=== PATIENT | male | born 1930 | race Caucasian/White ===

== ENCOUNTER 2018-01-29 16:11 | Inpatient (IN) | payer MEDICARE ==
[~2018-01-29] VITALS: Ht 177.8 cm; Wt 88.6 kg
[~2018-01-29 16:11] MED LIST: CALC-815 PO; FINA5TAB11 PO; FISH12002 PO; LISI10TA4 PO; METO50TA7 PO; MULT-38 PO; NITR0.4T48 SL; PRAV40TA3 PO; RANI150T8 PO; VITE1000C PO
[2018-01-29] MEDS ORDERED: normal saline 1000ML IV soln IVB ONE ×2 (16:40→17:55)
[2018-01-29 16:43] LABS: BASOPHILS % (AUTO) 0.3 % (0-1); EOSINOPHILS # (AUTO) 0.2 X10'3 (0-0.9); HEMATOCRIT 38.6 % (42.0-52.0); HEMOGLOBIN 13.1 g/dl (14.0-17.9); LYMPHOCYTES # (AUTO) 1.4 X10'3 (1.1-4.8); LYMPHOCYTES % (AUTO) 24.7 % (21-51); MEAN CORPUSCULAR HEMOGLOBIN 31.5 PG (27.0-31.0); MEAN CORPUSCULAR HGB CONC 33.9 % (33.0-36.5); MEAN CORPUSCULAR VOLUME 92.9 FL (78-98); MEAN PLATELET VOLUME 8.6 FL (7.4-10.4); MONOCYTES # (AUTO) 0.6 X10'3 (0-0.9); MONOCYTES % (AUTO) 10.6 % (2-12); NEUTROPHILS # (AUTO) 3.3 X10'3 (1.8-7.7); NEUTROPHILS % (AUTO) 60.4 % (42-75); PLATELET COUNT 165 X10'3 (140-440); RED BLOOD COUNT 4.16 X10'6 (4.70-6.10); WHITE BLOOD COUNT 5.5 X10'3 (4.5-11.0)
[2018-01-29 16:58] LABS: ALANINE AMINOTRANSFERASE 31 U/L (12-78); ALBUMIN 3.3 G/DL (3.4-5.0); ALBUMIN/GLOBULIN RATIO 1.1 (1.1-1.5); ALKALINE PHOSPHATASE 53 IU/L (46-116); ANION GAP 10 (8-16); ASPARTATE AMINO TRANSFERASE 18 U/L (10-37); BILIRUBIN,TOTAL 0.5 MG/DL (0.1-1.0); BLOOD UREA NITROGEN 33 MG/DL (7-18); BUN/CREATININE RATIO 17.6 (5.4-32.0); CALCIUM 8.3 MG/DL (8.5-10.1); CHLORIDE 106 MMOL/L (99-107); CREATININE 1.87 MG/DL (0.60-1.10); GLUCOSE 122 MG/DL (70-104); POTASSIUM 4.1 MMOL/L (3.5-5.1); SODIUM 140 MMOL/L (135-145); TOTAL CARBON DIOXIDE 23.6 MMOL/L (24-32); TOTAL PROTEIN 6.3 G/DL (6.4-8.2); eGFR 34 ML/MIN
[2018-01-29] MEDS ORDERED: nitroGLYCERIN 0.4mg SUBLingual tab SL PRN ×2 (17:55→20:20)
[2018-01-29 18:16] LABS: D-DIMER 2.08 MG/L FEU (0-0.50)
[2018-01-29] MEDS ORDERED: enoxaparin 100mg/ml syringe SUBCUT ONE (18:45)
[2018-01-29] MEDS ORDERED: DOXA4TAB5 PO (18:53)
[2018-01-29] MEDS ORDERED: CLOP75TA35 PO (18:53)
[2018-01-29] MEDS ORDERED: nitroGLYCERIN 0.4mg/hour patch TD ONE (19:00)
[2018-01-29] MEDS ORDERED: dextrose 5%-1/2 normal saline 1,000 ML IV SCH (20:11)
[2018-01-29] MEDS ORDERED: bisacodyl 10mg suppository rectal RC PRN (20:15)
[2018-01-29] MEDS ORDERED: acetaminophen 325mg tablet PO PRN ×2 (20:15)
[2018-01-29] MEDS ORDERED: HYDROmorphone 1 mg/ml syringe IV PRN ×2 (20:15)
[2018-01-29] MEDS ORDERED: diphenhydrAMINE 50 mg/ml inj IV PRN (20:15)
[2018-01-29] MEDS ORDERED: diphenhydrAMINE 25mg capsule PO PRN (20:15)
[2018-01-29] MEDS ORDERED: morphine 4 MG/ML inj SYRINge IV PRN ×2 (20:15)
[2018-01-29] MEDS ORDERED: ondansetron/PF 4mg/2ml inj IV PRN (20:15)
[2018-01-29] MEDS ORDERED: HYDROcodone/acetaminophen 10/325mg tab PO PRN (20:15)
[2018-01-29] MEDS ORDERED: acetaminophen 650mg rectal suppository RC PRN (20:15)
[2018-01-29] MEDS ORDERED: metoclopramide 5 mg/ml inj IV PRN (20:15)
[2018-01-29] MEDS ORDERED: CAFFEINE CITRATE 60 MG/3 ML injection vial IV PRN (20:20)
[2018-01-29] MEDS ORDERED: regadenoson 0.4mg/5ml syringe IV PRN (20:20)
[2018-01-29] MEDS ORDERED: metoprolol tartrate 1mg/ml inj IV PRN (20:20)
[2018-01-29] MEDS: pravastatin 40mg tablet PO SCH (20:43)
[2018-01-29 21:00] VITALS: BP 98/59
[2018-01-29] MEDS ORDERED: temazepam 15mg capsule PO PRN (21:00)
[2018-01-29] MEDS ORDERED: LISI-642 PO (22:12)
[2018-01-29] MEDS ORDERED: METO-539 PO (22:12)
[2018-01-29] MEDS: metoprolol succinate 25mg (24-HOUR) SR. Tablet PO SCH (22:30)
[2018-01-30] VITALS (20 sets, daily range): BP systolic 105–138; BP diastolic 49–65
[2018-01-30 05:23] LABS: BASOPHILS % (AUTO) 0.4 % (0-1); EOSINOPHILS # (AUTO) 0.3 X10'3 (0-0.9); EOSINOPHILS % (AUTO) 4.9 % (0-6); HEMATOCRIT 33.4 % (42.0-52.0); HEMOGLOBIN 11.2 g/dl (14.0-17.9); LYMPHOCYTES # (AUTO) 1.5 X10'3 (1.1-4.8); LYMPHOCYTES % (AUTO) 27.8 % (21-51); MEAN CORPUSCULAR HEMOGLOBIN 31.2 PG (27.0-31.0); MEAN CORPUSCULAR HGB CONC 33.5 % (33.0-36.5); MEAN CORPUSCULAR VOLUME 93.2 FL (78-98); MEAN PLATELET VOLUME 9.2 FL (7.4-10.4); MONOCYTES # (AUTO) 0.6 X10'3 (0-0.9); MONOCYTES % (AUTO) 11.6 % (2-12); NEUTROPHILS % (AUTO) 55.3 % (42-75); PLATELET COUNT 146 X10'3 (140-440); RED BLOOD COUNT 3.59 X10'6 (4.70-6.10); RED CELL DISTRIBUTION WIDTH 13.9 % (11.5-14.5); WHITE BLOOD COUNT 5.4 X10'3 (4.5-11.0)
[2018-01-30 06:32] LABS: ALANINE AMINOTRANSFERASE 21 U/L (12-78); ALBUMIN 2.7 G/DL (3.4-5.0); ALKALINE PHOSPHATASE 43 IU/L (46-116); ANION GAP 8 (8-16); ASPARTATE AMINO TRANSFERASE 17 U/L (10-37); BILIRUBIN,TOTAL 0.5 MG/DL (0.1-1.0); BLOOD UREA NITROGEN 27 MG/DL (7-18); BUN/CREATININE RATIO 18.4 (5.4-32.0); CALCIUM 8.4 MG/DL (8.5-10.1); CHLORIDE 110 MMOL/L (99-107); CREATININE 1.47 MG/DL (0.60-1.10); GLUCOSE 119 MG/DL (70-104); POTASSIUM 4.1 MMOL/L (3.5-5.1); SODIUM 143 MMOL/L (135-145); TOTAL CARBON DIOXIDE 24.9 MMOL/L (24-32); TOTAL PROTEIN 5.4 G/DL (6.4-8.2); eGFR 45 ML/MIN
[2018-01-30] MEDS: docusate sod 100mg capsule PO SCH ×2 (07:41→20:28)
[2018-01-30] MEDS: lisinopril 5mg tablet PO SCH (07:41)
[2018-01-30] MEDS: magnesium oxide 400mg tablet PO SCH (07:47)
[2018-01-30] MEDS: calcium carbonate 500mg tablet PO SCH (07:48)
[2018-01-30] MEDS: aspirin 81mg tab.chew PO SCH (07:48)
[2018-01-30] MEDS: finasteride 5mg tablet PO SCH (07:48)
[2018-01-30] MEDS: heparin, porcine 5000 units/ml vial SQ SCH ×2 (07:48→20:29)
[2018-01-30] MEDS: famotidine 20mg tablet PO SCH (07:48)
[2018-01-30] MEDS ORDERED: CALCIUM CARB PO SCH (08:00)
[2018-01-30] MEDS ORDERED: non-formulary drug (Ranitidine HCl 1 TAB) PO SCH (08:00)
[2018-01-30] MEDS ORDERED: MAGNESIUM CMB PO SCH (08:00)
[2018-01-30] MEDS ORDERED: metoprolol succinate 25mg (24-HOUR) SR. Tablet PO SCH (08:00)
[2018-01-30] MEDS ORDERED: lisinopril 10 MG tablet PO SCH (08:00)
[2018-01-30] MEDS ORDERED: non-formulary drug (Metoprolol Succinate* (Toprol Xl*) 1 TAB) PO SCH (08:00)
[2018-01-30] MEDS ORDERED: regadenoson 0.4mg/5ml syringe IV ONE (10:40)
[2018-01-30] MEDS ORDERED: CAFFEINE CITRATE 60 MG/3 ML injection vial IV ONE (10:40)
[2018-01-30] MEDS: HYDROcodone/acetaminophen 5mg/325mg tablet PO PRN (13:58)
[2018-01-30] MEDS: normal saline 1000ml 1,000 ML IV SCH (16:42)
[2018-01-30] MEDS: pravastatin 40mg tablet PO SCH (20:28)
[2018-01-30] MEDS: metoprolol succinate 25mg (24-HOUR) SR. Tablet PO SCH (20:28)
[2018-01-31 02:00] VITALS: BP 136/55
[2018-01-31] MEDS: normal saline 1000ml 1,000 ML IV SCH ×2 (03:01→12:35)
[2018-01-31 05:07] LABS: BASOPHILS % (AUTO) 0.3 % (0-1); EOSINOPHILS # (AUTO) 0.3 X10'3 (0-0.9); EOSINOPHILS % (AUTO) 4.9 % (0-6); HEMATOCRIT 33.6 % (42.0-52.0); HEMOGLOBIN 11.2 g/dl (14.0-17.9); LYMPHOCYTES # (AUTO) 1.4 X10'3 (1.1-4.8); LYMPHOCYTES % (AUTO) 25.2 % (21-51); MEAN CORPUSCULAR HEMOGLOBIN 31.3 PG (27.0-31.0); MEAN CORPUSCULAR HGB CONC 33.3 % (33.0-36.5); MEAN PLATELET VOLUME 8.6 FL (7.4-10.4); MONOCYTES # (AUTO) 0.6 X10'3 (0-0.9); NEUTROPHILS # (AUTO) 3.4 X10'3 (1.8-7.7); NEUTROPHILS % (AUTO) 58.6 % (42-75); PLATELET COUNT 154 X10'3 (140-440); RED BLOOD COUNT 3.58 X10'6 (4.70-6.10); WHITE BLOOD COUNT 5.7 X10'3 (4.5-11.0)
[2018-01-31 05:49] LABS: ALANINE AMINOTRANSFERASE 21 U/L (12-78); ALBUMIN 2.6 G/DL (3.4-5.0); ALBUMIN/GLOBULIN RATIO 0.9 (1.1-1.5); ALKALINE PHOSPHATASE 46 IU/L (46-116); ANION GAP 7 (8-16); ASPARTATE AMINO TRANSFERASE 17 U/L (10-37); BILIRUBIN,TOTAL 0.4 MG/DL (0.1-1.0); BLOOD UREA NITROGEN 19 MG/DL (7-18); BUN/CREATININE RATIO 14.3 (5.4-32.0); CALCIUM 7.8 MG/DL (8.5-10.1); CHLORIDE 111 MMOL/L (99-107); CREATININE 1.33 MG/DL (0.60-1.10); GLUCOSE 111 MG/DL (70-104); POTASSIUM 4.3 MMOL/L (3.5-5.1); SODIUM 143 MMOL/L (135-145); TOTAL CARBON DIOXIDE 24.9 MMOL/L (24-32); TOTAL PROTEIN 5.4 G/DL (6.4-8.2); eGFR 51 ML/MIN
[2018-01-31 06:00] VITALS: BP 113/50
[2018-01-31 07:00] VITALS: BP_SYST 122; BP_SYST 139; BP_SYST 143; BP_DIAS 56; BP_DIAS 63; BP_DIAS 70
[2018-01-31] MEDS: clopidogrel 75mg tablet PO SCH (07:58)
[2018-01-31] MEDS: doxazosin mesylate 2mg tablet PO SCH (07:58)
[2018-01-31] MEDS: famotidine 20mg tablet PO SCH (07:58)
[2018-01-31] MEDS: docusate sod 100mg capsule PO SCH ×2 (07:58→20:35)
[2018-01-31] MEDS: magnesium oxide 400mg tablet PO SCH (07:58)
[2018-01-31] MEDS: calcium carbonate 500mg tablet PO SCH (07:58)
[2018-01-31] MEDS: aspirin 81mg tab.chew PO SCH (07:58)
[2018-01-31] MEDS: lisinopril 5mg tablet PO SCH (08:00)
[2018-01-31] MEDS: heparin, porcine 5000 units/ml vial SQ SCH ×2 (08:00→20:35)
[2018-01-31] MEDS ORDERED: metoprolol succinate 25mg (24-HOUR) SR. Tablet PO SCH (08:00)
[2018-01-31] MEDS: finasteride 5mg tablet PO SCH (08:03)
[2018-01-31 10:00] VITALS: BP 138/69
[2018-01-31] MEDS ORDERED: meclizine 12.5mg tablet PO ONE (15:25)
[2018-01-31] MEDS ORDERED: meclizine 12.5mg tablet PO PRN (15:25)
[2018-01-31 18:16] VITALS: BP 130/50
[2018-01-31] MEDS: pravastatin 40mg tablet PO SCH (20:35)
[2018-01-31] MEDS: metoprolol succinate 25mg (24-HOUR) SR. Tablet PO SCH (20:35)
[2018-01-31 22:13] VITALS: BP 108/66
[2018-02-01] MEDS: normal saline 1000ml 1,000 ML IV SCH (00:12)
[2018-02-01 05:58] LABS: BASOPHILS % (AUTO) 0.4 % (0-1); EOSINOPHILS # (AUTO) 0.3 X10'3 (0-0.9); EOSINOPHILS % (AUTO) 5.5 % (0-6); HEMATOCRIT 35.9 % (42.0-52.0); HEMOGLOBIN 12.1 g/dl (14.0-17.9); LYMPHOCYTES # (AUTO) 1.6 X10'3 (1.1-4.8); LYMPHOCYTES % (AUTO) 29.4 % (21-51); MEAN CORPUSCULAR HEMOGLOBIN 31.5 PG (27.0-31.0); MEAN CORPUSCULAR HGB CONC 33.6 % (33.0-36.5); MEAN CORPUSCULAR VOLUME 93.7 FL (78-98); MEAN PLATELET VOLUME 8.6 FL (7.4-10.4); MONOCYTES # (AUTO) 0.6 X10'3 (0-0.9); MONOCYTES % (AUTO) 10.8 % (2-12); NEUTROPHILS # (AUTO) 2.8 X10'3 (1.8-7.7); NEUTROPHILS % (AUTO) 53.9 % (42-75); PLATELET COUNT 162 X10'3 (140-440); RED BLOOD COUNT 3.83 X10'6 (4.70-6.10); WHITE BLOOD COUNT 5.3 X10'3 (4.5-11.0)
[2018-02-01 06:00] VITALS: BP 163/74
[2018-02-01 06:17] LABS: ALANINE AMINOTRANSFERASE 24 U/L (12-78); ALBUMIN 2.8 G/DL (3.4-5.0); ALKALINE PHOSPHATASE 48 IU/L (46-116); ANION GAP 7 (8-16); ASPARTATE AMINO TRANSFERASE 15 U/L (10-37); BILIRUBIN,TOTAL 0.6 MG/DL (0.1-1.0); BLOOD UREA NITROGEN 18 MG/DL (7-18); BUN/CREATININE RATIO 12.9 (5.4-32.0); CALCIUM 7.8 MG/DL (8.5-10.1); CHLORIDE 111 MMOL/L (99-107); CREATININE 1.39 MG/DL (0.60-1.10); GLUCOSE 107 MG/DL (70-104); POTASSIUM 4.1 MMOL/L (3.5-5.1); SODIUM 142 MMOL/L (135-145); TOTAL CARBON DIOXIDE 23.7 MMOL/L (24-32); TOTAL PROTEIN 5.7 G/DL (6.4-8.2); eGFR 48 ML/MIN
[2018-02-01] MEDS: docusate sod 100mg capsule PO SCH (07:12)
[2018-02-01] MEDS: magnesium oxide 400mg tablet PO SCH (07:12)
[2018-02-01] MEDS: doxazosin mesylate 2mg tablet PO SCH (07:12)
[2018-02-01] MEDS: clopidogrel 75mg tablet PO SCH (07:13)
[2018-02-01] MEDS: finasteride 5mg tablet PO SCH (07:13)
[2018-02-01] MEDS: lisinopril 5mg tablet PO SCH (07:13)
[2018-02-01] MEDS: famotidine 20mg tablet PO SCH (07:13)
[2018-02-01] MEDS: calcium carbonate 500mg tablet PO SCH (07:13)
[2018-02-01] MEDS: heparin, porcine 5000 units/ml vial SQ SCH (07:14)
[2018-02-01 08:00] VITALS: BP_SYST 103; BP_SYST 104; BP_SYST 137; BP_DIAS 49; BP_DIAS 50; BP_DIAS 59
[2018-02-01 10:00] VITALS: BP 137/59
[2018-02-01] MEDS: HYDROcodone/acetaminophen 5mg/325mg tablet PO PRN (13:09)
[2018-02-01] MEDS ORDERED: iohexol 350MG/ML 100ml bottle IV ONE (15:06)
[2018-02-01] MEDS ORDERED: MECL12.584 PO (16:44)
[2018-02-01] MEDS ORDERED: MAGN400T6 PO (16:44)
== END 2018-02-01 18:00 | disposition home health service (06) | DRG 149 ==
LOC: ER 16:11 → ED HOLD 20:11 → ORTHO 4S 21:06
PROVIDERS: ADMIT Family Medicine; ATTEND Family Medicine
PROC: 4A02XM4 Measurement of Cardiac Total Activity, External Approach (ICD-10-PCS; principal; 2018-01-30)
PROC: 3E073KZ Introduction of Other Diagnostic Substance into Coronary Artery, Percutaneous Approach (ICD-10-PCS; 2018-01-30)
PROC: CB221ZZ Tomographic (Tomo) Nuclear Medicine Imaging of Lungs and Bronchi using Technetium 99m (Tc-99m) (ICD-10-PCS; 2018-02-01)
PROC: B3201ZZ Computerized Tomography (CT Scan) of Thoracic Aorta using Low Osmolar Contrast (ICD-10-PCS; 2018-02-01)
DX: H81.10 Benign paroxysmal vertigo, unspecified ear (principal); N17.9 Acute kidney failure, unspecified; N18.9 Chronic kidney disease, unspecified; I12.9 Hypertensive chronic kidney disease with stage 1 through stage 4 chronic kidney disease, or unspecified chronic kidney disease; R07.89 Other chest pain; I25.10 Atherosclerotic heart disease of native coronary artery without angina pectoris; I25.2 Old myocardial infarction; N40.0 Benign prostatic hyperplasia without lower urinary tract symptoms; J84.10 Pulmonary fibrosis, unspecified; R79.1 Abnormal coagulation profile; Z95.0 Presence of cardiac pacemaker; Z88.8 Allergy status to other drugs, medicaments and biological substances; Z79.899 Other long term (current) drug therapy; Z79.02 Long term (current) use of antithrombotics/antiplatelets; Z86.718 Personal history of other venous thrombosis and embolism; Z82.3 Family history of stroke; Z83.3 Family history of diabetes mellitus
CPT/HCPCS: 36415; 70551; 71045; 71275; 78452; 78582; 80053; 83735; 83880; 84484; 85025; 85379; 87070; 93005; 93017; 93306; 93880; 96360; 96372; 97110; 97116; 97162; 97530; 99285; A9500; A9539; A9540; J1644; J1650; J2785; J7030; J8597; Q9967

== ENCOUNTER 2018-05-03 09:13 | Day surgery (SDC) | payer MEDICARE ==
[~2018-05-03] VITALS: Ht 177.8 cm; Wt 93.9 kg
[2018-05-03] VITALS (12 sets, daily range): BP systolic 98–127; BP diastolic 44–71
[~2018-05-03 09:13] MED LIST changes: +CLOP75TA35 PO; +DOXA4TAB5 PO; +LISI-642 PO; -LISI10TA4 PO; +MAGN400T6 PO; +MECL12.584 PO; +METO-539 PO; -METO50TA7 PO; -VITE1000C PO
[2018-05-03] MEDS ORDERED: sod bicarbonate 150mEq in D5W 1,150 ML IV ONE (09:35)
[2018-05-03] MEDS ORDERED: diphenhydrAMINE 25mg capsule PO PRN (09:40)
[2018-05-03] MEDS ORDERED: ASPI81TA52 PO (10:00)
[2018-05-03] MEDS ORDERED: OMEG1CAP2 PO (10:00)
[2018-05-03] MEDS ORDERED: LORA0.5T PO (10:03)
[2018-05-03] MEDS ORDERED: CHOL10002 PO (10:03)
[2018-05-03] MEDS ORDERED: LIDOcaine 1% (10mg/ml) 2ml vial ONE (10:32)
[2018-05-03 10:36] LABS: BASOPHILS % (AUTO) 0.4 % (0-1); EOSINOPHILS # (AUTO) 0.2 X10'3 (0-0.9); EOSINOPHILS % (AUTO) 3.7 % (0-6); HEMATOCRIT 44.8 % (42.0-52.0); HEMOGLOBIN 14.9 g/dl (14.0-17.9); LYMPHOCYTES # (AUTO) 1.4 X10'3 (1.1-4.8); LYMPHOCYTES % (AUTO) 20.2 % (21-51); MEAN CORPUSCULAR HEMOGLOBIN 31.5 PG (27.0-31.0); MEAN CORPUSCULAR HGB CONC 33.1 % (33.0-36.5); MEAN PLATELET VOLUME 8.9 FL (7.4-10.4); MONOCYTES # (AUTO) 0.6 X10'3 (0-0.9); MONOCYTES % (AUTO) 8.9 % (2-12); NEUTROPHILS # (AUTO) 4.5 X10'3 (1.8-7.7); NEUTROPHILS % (AUTO) 66.8 % (42-75); PLATELET COUNT 221 X10'3 (140-440); RED BLOOD COUNT 4.72 X10'6 (4.70-6.10); WHITE BLOOD COUNT 6.8 X10'3 (4.5-11.0)
[2018-05-03 10:45] LABS: ANION GAP 11 (8-16); BLOOD UREA NITROGEN 22 MG/DL (7-18); BUN/CREATININE RATIO 13.8 (5.4-32.0); CALCIUM 9.2 MG/DL (8.5-10.1); CHLORIDE 107 MMOL/L (99-107); CREATININE 1.59 MG/DL (0.60-1.10); GLUCOSE 110 MG/DL (70-104); POTASSIUM 3.9 MMOL/L (3.5-5.1); SODIUM 143 MMOL/L (135-145); eGFR 41 ML/MIN
[2018-05-03] MEDS ORDERED: iohexol 350 MG/ML 50ML vial IV ONE (10:46)
[2018-05-03] MEDS ORDERED: fentaNYL/PF 50MCG/1 ML 2ML syringe ONE (10:46)
[2018-05-03] MEDS ORDERED: iohexol 350MG/ML 100ml bottle IV ONE (10:46)
[2018-05-03] MEDS ORDERED: LIDOcaine 1% 30ml preserv. free vial ONE (10:46)
[2018-05-03] MEDS ORDERED: midazolam 2 mg/2 ml injection ONE (10:47)
== END 2018-05-03 17:00 | disposition home or self-care (01) ==
LOC: SSTAY O 09:13
PROVIDERS: ATTEND Internal Medicine Cardiovascular Disease
DX: I25.118 Atherosclerotic heart disease of native coronary artery with other forms of angina pectoris (principal); I10 Essential (primary) hypertension; E78.5 Hyperlipidemia, unspecified; J44.9 Chronic obstructive pulmonary disease, unspecified; N40.0 Benign prostatic hyperplasia without lower urinary tract symptoms; M06.9 Rheumatoid arthritis, unspecified; Z86.74 Personal history of sudden cardiac arrest; Z87.891 Personal history of nicotine dependence; Z90.49 Acquired absence of other specified parts of digestive tract; Z85.038 Personal history of other malignant neoplasm of large intestine; Z98.41 Cataract extraction status, right eye; Z98.42 Cataract extraction status, left eye; Z87.442 Personal history of urinary calculi; Z72.89 Other problems related to lifestyle; Z85.828 Personal history of other malignant neoplasm of skin; Z95.5 Presence of coronary angioplasty implant and graft; Z79.82 Long term (current) use of aspirin; Z86.69 Personal history of other diseases of the nervous system and sense organs; Z98.890 Other specified postprocedural states; Z79.899 Other long term (current) drug therapy; Z88.8 Allergy status to other drugs, medicaments and biological substances; Z83.3 Family history of diabetes mellitus; Z82.3 Family history of stroke
CPT/HCPCS: 36415; 80048; 83735; 85025; 85610; 93005; 93458; 99152; 99153; A6257; C1760; C1769; C1894; J1644; J2250; J3010; J3490; Q0163; Q9967; A4620